=== PATIENT | male | born 1960 | race Caucasian/White ===

== ENCOUNTER → 2022-03-14 | Outpatient (CLI) | payer MEDICARE ==
[~2022-03-14] MED LIST: LIPITOR TAB 1010 MG PO; NEURONTIN 300300 MG PO; NORVASC 5 MG TAB5 MG PO; VENTOLIN HFA 66.7 GM INH
== END ==
LOC: SLEEP 09:32
DX: G47.33 Obstructive sleep apnea (adult) (pediatric) (principal)
CPT/HCPCS: 95810